=== PATIENT | male | born 1950 | race Caucasian/White ===

== ENCOUNTER 2023-09-23 15:11 | Emergency (ER) | payer MEDICARE, BC, SELFPAY ==
[2023-09-23 15:15] VITALS: BP 190/84; PULSE 103; TEMP 36.6; O2SAT 97; BMI 27.4
--- NOTE | 2023-09-23 15:27 | ED_ITS ---
HPI HPI - Head Injury General Chief complaint: Head Injury Stated complaint: HEAD INJURY Time Seen by Provider: 09/23/23 15:27 Source: patient Mode of arrival: walk-in Limitations: no limitations History of Present Illness HPI Narrative: This patient is here with his for an injury to his head. He was in his usual state of health and was walking down his stairs at home and missed a step. He fell forward hitting his head on the floor. He asked for his to come downstairs. They put a bag of ice on it and then he walked upstairs. There was bleeding so she brought him to the hospital. At this time he does not complain of any headache no vomiting no change in cognition or mental status. Does not have any paresis paresthesias tingling or numbness to the upper or lower ext remities. Does not have any pain in his neck. He is not on any anticoagulants or or aspirin products. He has not had recurring falls recent and he is not on any new medication. He says he feels fine at this stage and does not have any symptoms at all there is no palpitations or lightheadedness leading up to this he said he was just clumsy and fell. Related Data Home Medications ?Medication ?Instructions ?Recorded ?Confirmed No Known Home Medications 09/23/23 09/23/23 Allergies Allergy/AdvReac Type Severity Reaction Status Date / Time No Known Drug Allergies Allergy Verified 09/23/23 15:15 Opioid HPI Opioid Management Most Recent Pain and Opioid Data: No Data to Display Exam Narrative Exam Narrative: Awake alert pleasant. GCS is 15. Short and long-term memory conversational skills are all normal. He is holding ice being on top of his scalp and on the very superior aspect midline of the scalp he is got a stellate type laceration that is very slow bleeding. There is no expanding hematoma. There is no gaping wound or loss of tissue. He does not have any tenderness over the cervical spine. Movement of the upper extremity is normal. His neurological examination shows no focal neurological symptomatology or deficits. Cranial nerves are normal. His pulse is regular. Initial blood pressure was modestly elevated we will recheck that. He has not been on any blood pressure medication. Constitutional Vital Signs, click to edit/add: Last Vital Signs Temp 97.8 F 09/23/23 15:15 Pulse 103 H 09/23/23 15:15 Resp 18 08/02/24 15:15 BP 190/84 H 09/23/23 15:15 Pulse Ox 97 09/23/23 15:15 O2 Del Method Room Air 09/23/23 15:15 Course Vital Signs Vital signs: Vital Signs Temperature 97.8 F 09/23/23 15:15 Pulse Rate 103 H 09/23/23 15:15 Respiratory Rate 18 09/23/23 15:15 Blood Pressure 190/84 H 09/23/23 15:15 Pulse Oximetry 97 09/23/23 15:15 Oxygen Delivery Method Room Air 09/23/23 15:15 Temperature 97.8 F 09/23/23 15:15 Pulse Rate 103 H 09/23/23 15:15 Respiratory Rate 18 09/23/23 15:15 Blood Pressure 190/84 H 09/23/23 15:15 Pulse Oximetry 97 09/23/23 15:15 Oxygen Delivery Method Room Air 09/23/23 15:15 MDM - Head Injury MDM Narrative Medical decision making narrative: After cleansing by the nursing staff this patient has 2 wounds . 1 is a midline wound that is well-approximated there is no loss of tissue, devitalized tissue or foreign body. There is shaped like an X. The other wound to the right of the midline and slightly posterior is more of a linear wound. The first wound is 1.5 cm the second wound is also 1.5 cm so after lidocaine 1% anesthesia with epinephrine both wounds were sterilely prepped and draped in usual fashion cleansed with Betadine. The midline wound was closed with 2 sutures the right sided wound was closed with 3. Pressure was applied bleeding was controlled. Stitches to be out in 7 to 10 days. Wound care sheet was discussed. He is to be at rest over the next 48 hours Discharge Plan Discharge Stand Alone Forms: Portal Instructions Chief Complaint: Head Injury Clinical Impression: Laceration of multiple sites of scalp and neck Patient Disposition: Home, Self-Care Time of Disposition Decision: 16:04 Prescriptions / Home Meds: No Action No Known Home Medications Print Language: Kiswahili Additional Instructions: Apply ice to area today. Limit activity today and tomorrow. Return for any change in his normal level of alertness, any confusion, or any headache or vomiting stitches out 7 to 10 days Referrals: Physician,Non-Staff, MD [Primary Care Provider] - 1 week
[2023-09-23] MEDS: LIDOCAINE HCL 1%-EPINEPHRINE 1:100,000 20 ML MDV INJ (15:58)
[2023-09-23] MEDS: ADACEL DIPH,PERTUSS(ACELL),TET VAC/PF 0.5 ML ADULT SYRINGE IM (16:30)
[2023-09-23 16:40] VITALS: BP 163/93
[2023-09-23] MEDS: BACITRACIN 0.9 GM PACKET 1 PACKET TOPICAL (16:40)
[2023-09-23 16:45] VITALS: BP 163/93; PULSE 73; O2SAT 95
== END 2023-09-23 16:47 | disposition home or self-care (01) ==
PROVIDERS: Emergency Provider Emergency Medicine Emergency Medical Services; Family Provider Family Medicine; PCP Family Medicine
DX: S01.01XA Laceration without foreign body of scalp, initial encounter (principal); S11.91XA Laceration without foreign body of unspecified part of neck, initial encounter; Z23 Encounter for immunization; W10.9XXA Fall (on) (from) unspecified stairs and steps, initial encounter
CPT/HCPCS: 12002; 90471; 90715; 99283